=== PATIENT | male | born 1990 | race African-American/Black ===

== ENCOUNTER → 2024-02-17 | Day surgery (SDC) | payer MEDICARE, MEDICAID ==
[~2024-02-17] VITALS: Ht 175.3 cm; Wt 77.6 kg
[~2024-02-17] MED LIST: DOCU100T28 PO; FERR325T6 PO; MIDAZOLAM HCL 2 MG/2 ML VIAL ONE; PANT40TA51 PO; PROPOFOL 200MG/20ML VIAL IV ONE; SIMETHICONE 40 MG/0.6 ML 15ML ONE; SIMV5TAB58 PO
[2024-02-17] MEDS: LACTATED RINGERS 1,000 ML IV SCH (09:45)
== END | disposition home or self-care (01) ==
LOC: OR 08:22
PROVIDERS: ATTEND Internal Medicine Gastroenterology
DX: K25.4 Chronic or unspecified gastric ulcer with hemorrhage (principal); R10.13 Epigastric pain; K21.9 Gastro-esophageal reflux disease without esophagitis; K29.50 Unspecified chronic gastritis without bleeding; K44.9 Diaphragmatic hernia without obstruction or gangrene; E78.00 Pure hypercholesterolemia, unspecified; Z86.2 Personal history of diseases of the blood and blood-forming organs and certain disorders involving the immune mechanism; Z79.899 Other long term (current) drug therapy; Z98.890 Other specified postprocedural states
CPT/HCPCS: 43239; 88305; J2250; J2704